=== PATIENT | female | born 1950 | race Caucasian/White ===

== ENCOUNTER 2016-12-22 19:38 | Inpatient (IN) | payer OTHER ==
[2016-12-22] MEDS ORDERED: KETAMINE 100 MG/10 ML SYR IVP ONE (19:56)
--- NOTE | 2016-12-22 20:36 | EDPHY ---
H & P Stated Complaint: [facility] [place] fall, tripped by dogs, right hip pain ext. rotation dislocated fingers Time Seen by Provider: 12/22/16 19:49 HPI/ROS: CHIEF COMPLAINT: Mechanical fall, multiple finger dislocations, right hip pain HISTORY OF PRESENT ILLNESS: The patient presents to the ED after mechanical fall. This resulted in multiple finger distally right finger dislocations and right hip pain and deformity. The patient reportedly tripped while walking her dog. She fell landing on her right hip. She dislocated her 3rd and 4th fingers. The patient has a prior history of a right knee surgery. She did not strike her head or lose consciousness. The patient denies any complaints of headache, neck pain, back pain, chest pain, difficulty breathing, numbness or weakness. The patient has moderate to severe pain with any attempted movement of her right hip. The patient denies anticoagulant use. REVIEW OF SYSTEMS: A comprehensive 10 point review of systems is otherwise negative aside from elements mentioned in the history of present illness. Source: Patient Exam Limitations: No limitations - Personal History Current Tetanus/Diphtheria Vaccine: Yes Current Tetanus Diphtheria and Acellular Pertussis (TDAP): Yes Tetanus Vaccine Date: less than 10 years - Medical/Surgical History Hx Asthma: No Hx Chronic Respiratory Disease: No Hx Diabetes: No Hx Cardiac Disease: No Hx Renal Disease: No Hx Cirrhosis: No Hx Alcoholism: No Hx HIV/AIDS: No Hx Splenectomy or Spleen Trauma: No Other PMH: arthritis, osteoporosis. R hip labrum repair, R total knee rep. - Social History Smoking Status: Never smoked - Physical Exam Exam: General Appearance: Alert, moderate discomfort Eyes: Pupils equal and round no pallor or injection ENT, Mouth: Mucous membranes moist Respiratory: There are no retractions, lungs are clear to auscultation Cardiovascular: Regular rate and rhythm Gastrointestinal: Abdomen is soft and nontender, no masses, bowel sounds normal Neurological: A&O, normal motor function, normal sensory exam, normal cranial nerves Skin: Warm and dry, no rashes Musculoskeletal: Neck is supple nontender Extremities: Dislocations noted of the right 3rd and 4th PIP joints Constitutional: Initial Vital Signs Temperature (C) 36.8 C 12/22/16 19:49 Heart Rate 79 12/22/16 19:49 Respiratory Rate 20 12/22/16 19:49 Blood Pressure 138/87 H 12/22/16 19:49 O2 Sat (%) 95 12/22/16 19:49 O2 Delivery Mode Nasal Cannula O2 (L/minute) 3 Allergies/Adverse Reactions: bee venom protein (honey bee) Allergy (Verified 12/22/16 19:48) Home Medications: Medication Instructions Recorded Celebrex 12/22/16 Medical Decision Making - Diagnostics EKG Interpretation: EKG: Complete interpretation has been separately recorded in the [facility] archive. Summary impression: Sinus rhythm Imaging Results: Imaging Impressions Hip X-Ray 12/22/16 19:56 Impression: 1. Oblique fracture proximal shaft right femur extending into the intertrochanteric area with fracture fragment also the lesser trochanter. Hand X-Ray 12/22/16 19:57 Impression: 1. No acute osseous abnormality seen right hand. Femur X-Ray 12/22/16 20:13 Impression: 1. Oblique fracture proximal shaft right femur extending into the intertrochanteric area with fracture fragment also the lesser trochanter. Procedures: 1. Procedure: Dislocation reduction. Indication: Dislocation reduction of a right 4th DIP dislocation The right 4th finger was reduced in the usual fashion without complications. Post reduction the patient's neurovascular exam is normal. Post reduction x- ray demonstrates reduction of the joint to the anatomic position. The procedure was performed by myself. 2. Procedure: Dislocation reduction. Indication: Dislocation reduction of a right 3rd PIP dislocation The right 3rd finger was reduced in the usual fashion without complications. Post reduction the patient's neurovascular exam is normal. Post reduction x- ray demonstrates reduction of the joint to the anatomic position. The procedure was performed by myself. ED Course/Re-evaluation: The patient had dislocations of her 3rd and 4th fingers of the right hand which were treated by myself with close reduction and splinted with finger splints. The patient was taken for x-ray which demonstrates a proximal femur fracture oblique and spiral in nature with slight displacement deformity. The patient had an IV established. She received 50 mg of ketamine for x-rays after she received 200 mcg of fentanyl. Consultation was made with Dr. Olivo from Orthopedic surgery who reviewed the patient's films. He has requested the patient be admitted to the hospitalist. The orthopedic service will evaluate the patient in the morning. She should be NPO after midnight. Consultation was made with Dr. Antwon Phan from the hospitalist service at 9 :00 p.m.. She will admit the patient this evening. The patient was re-evaluated by myself at 9:15 p.m.. She continues to be neurologically intact. Her pain is currently adequately controlled. Differential Diagnosis: Differential diagnosis considered includes finger fracture, dislocation, hip fracture, pelvic fracture, neurovascular injury, femur fracture - Data Points Laboratory Results: Laboratory Results 12/22/16 19:49 12/22/16 19:49 12/22/16 12/22/16 19:49 19:49 WBC 9.60 10^3/uL H 10^3/uL (3.80-9.50) RBC 4.24 10^6/uL 10^6/uL (4.18-5.33) Hgb 12.9 g/dL g/dL (12.6-16.3) Hct 38.6 % % (38.0-47.0) MCV 91.0 fL fL (81.5-99.8) MCH 30.4 pg pg (27.9-34.1) MCHC 33.4 g/dL g/dL (32.4-36.7) RDW 13.8 % % (11.5-15.2) Plt Count 317 10^3/uL 10^3/uL (150-400) MPV 10.2 fL fL (8.7-11.7) Neut % (Auto) 49.0 % % (39.3-74.2) Lymph % (Auto) 36.9 % % (15.0-45.0) [place] % (Auto) 9.5 % % (4.5-13.0) Eos % (Auto) 3.6 % % (0.6-7.6) Baso % (Auto) 0.7 % % (0.3-1.7) Nucleat RBC Rel Count 0.0 % % (0.0-0.2) Absolute Neuts (auto) 4.70 10^3/uL 10^3/uL (1.70-6.50) Absolute Lymphs (auto) 3.54 10^3/uL H 10^3/uL (1.00-3.00) Absolute Monos (auto) 0.91 10^3/uL H 10^3/uL (0.30-0.80) Absolute Eos (auto) 0.35 10^3/uL 10^3/uL (0.03-0.40) Absolute Basos (auto) 0.07 10^3/uL 10^3/uL (0.02-0.10) Absolute Nucleated RBC 0.00 10^3/uL 10^3/uL (0-0.01) Immature Gran % 0.3 % % (0.0-1.1) Immature Gran # 0.03 10^3/uL 10^3/uL (0.00-0.10) Sodium 141 mEq/L mEq/L (134-144) Potassium 4.0 mEq/L mEq/L (3.5-5.2) Chloride 109 mEq/L mEq/L (97-110) Carbon Dioxide 22 mEq/l mEq/l (22-31) Anion Gap 10 mEq/L mEq/L (8-16) BUN 28 mg/dL H mg/dL (7-23) Creatinine 0.9 mg/dL mg/dL (0.6-1.0) Estimated GFR > 60 Glucose 117 mg/dL H mg/dL (70-100) Calcium 9.5 mg/dL mg/dL (8.5-10.4) Medications Given: Discontinued Medications Hydromorphone HCl (Dilaudid) 0.5 mg IVP EDNOW ONE Stop: 12/22/16 20:41 Last Admin: 12/22/16 20:46 Dose: 0.5 mg Ketamine HCl (Ketamine) 50 mg IVP EDNOW ONE Stop: 12/22/16 19:57 Last Admin: 12/22/16 20:02 Dose: 50 mg Departure - Departure Disposition: [facility] In[facility] Acute Clinical Impression: Fracture of proximal end of right femur Qualifiers: Encounter type: initial encounter Fracture type: closed Qualified Code(s): S72.001A - Fracture of unspecified part of neck of right femur, initial encounter for closed fracture Dislocation of right middle finger Qualifiers: Encounter type: initial encounter Qualified Code(s): S63.252A - Unspecified dislocation of right middle finger, initial encounter Dislocation of right ring finger Qualifiers: Encounter type: initial encounter Qualified Code(s): S63.254A - Unspecified dislocation of right ring finger, initial encounter Condition: Fair
--- NOTE | 2016-12-22 20:39 | CPEKG ---
Heart Rate: 74 RR Interval: 811 P-R Interval: 152 QRSD Interval: 74 QT Interval: 396 QTC Interval: 440 P [place]: 52 QRS [place]: 11 T Wave [place]: 15 EKG Severity - NORMAL ECG - EKG Impression: SINUS RHYTHM Electronically Signed By: Tyrone Ocasio 22-Dec-2016 21:14:15
[2016-12-22] MEDS ORDERED: HYDROmorphONE/DILAUDID 1 MG/ML SYR IVP ONE ×2 (20:40→21:15)
[2016-12-22 21:03] LABS: % IMMATURE GRANULYOCYTES 0.3 % (0.0-1.1); ABSOLUTE IMMATURE GRANULOCYTES 0.03 10^3/uL (0.00-0.10); ADD DIFF? NO; ADD MORPH? NO; ADD SCAN? NO; ATYPICAL LYMPHOCYTE FLAG 0 (0-99); FRAGMENT RBC FLAG 0 (0-99); HEMATOCRIT 38.6 % (38.0-47.0); HEMOGLOBIN 12.9 g/dL (12.6-16.3); LEFT SHIFT FLG 0 (0-99); LIPEMIA HEMOLYSIS FLAG 80 (0-99); MEAN CELL HEMOGLOBIN 30.4 pg (27.9-34.1); MEAN CELL HEMOGLOBIN CONCENTR. 33.4 g/dL (32.4-36.7); MEAN PLATELET VOLUME 10.2 fL (8.7-11.7); PLATELET CLUMPS FLAG 10 (0-99); PLATELET COUNT 317 10^3/uL (150-400); RED BLOOD CELL COUNT 4.24 10^6/uL (4.18-5.33); RED CELL DISTRIBUTION WIDTH 13.8 % (11.5-15.2)
[2016-12-22 21:09] LABS: ANION GAP 10 mEq/L (8-16); CALCIUM 9.5 mg/dL (8.5-10.4); CARBON DIOXIDE 22 mEq/l (22-31); CHLORIDE 109 mEq/L (97-110); CREATININE 0.9 mg/dL (0.6-1.0); GLOMERULAR FILTRATION RATE > 60; GLUCOSE 117 mg/dL (70-100); SODIUM 141 mEq/L (134-144)
[2016-12-22] MEDS ORDERED: NS 1,000 ML IV ONE (21:10)
[2016-12-22] MEDS ORDERED: MAGNESIUM HYDROXIDE 30 ML UDCUP PO PRN (21:12)
[2016-12-22] MEDS ORDERED: ONDANSETRON 4 MG/2 ML VIAL IVP PRN (21:12)
[2016-12-22] MEDS ORDERED: LACTULOSE 20 GM/30 ML UDCUP PO PRN (21:12)
[2016-12-22] MEDS ORDERED: PROMETHAZINE HCL 25 MG TAB PO PRN (21:12)
[2016-12-22] MEDS ORDERED: LORazepam 0.5 MG TAB PO PRN (21:12)
[2016-12-22] MEDS ORDERED: BISACODYL 10 MG SUPP PR PRN (21:12)
[2016-12-22] MEDS ORDERED: ONDANSETRON DISINTEGRATING 4 MG TAB PO PRN (21:12)
[2016-12-22] MEDS ORDERED: NS 1,000 ML IV SCH (21:15)
--- NOTE | 2016-12-22 21:22 | PDGENHP ---
History and Physical - Chief Complaint hip pain - History of Present Illness 66 yo F with PMH that includes osteoarthritis and right labral tear presenting s /p mechanical fall at home with severe right sided hip pain. Patient was opening the door for the gilda man, and her 2 puppies escaped--she ran outside after them, but when she grabbed one of the dogs collars to restrain him, she suffered finger dislocations on her right hand and fell to the ground onto her right hip. She did not hit her head. She had no LOC. She had immediate severe pain and was unable to move. She states this was more severe pain than she has ever had in her life. She was given ketamine and dilaudid in ER and notes that so long as she does not move, her pain is currently controlled, but with any movement at all the pain is again severe. History Information - Allergies/Home Medication List Allergies/Adverse Reactions: bee venom protein (honey bee) Allergy (Verified 12/22/16 19:48) Home Medications: Calcium Carbonate [Oyster Shell Calcium 500 mg (*)] 500 mg PO DAILY 12/22/16 [ Last Taken 12/22/16] Celebrex 12/22/16 [Last Taken Unknown] Docusate Sodium [Colace 100 MG (*)] 100 mg PO DAILY 12/22/16 [Last Taken ] I have personally reviewed and updated: family history, medical history, social history, surgical history - Past Medical History migraines Additional medical history: right labral tear with right total hip scheduled in February - Surgical History Additional surgical history: bladder sling and mesh surgery. TKA. multiple arthroscopies right knee - Family History Positive for: non-pertinent - Social History Smoking Status: Never smoked Alcohol Use: Rarely Drug Use: None Additional social history: , 3 children, patient and her are psychiatrists Review of Systems ROS: 10pt was reviewed & negative except for what was stated in HPI & below Physical Exam Temp Pulse Resp BP Pulse Ox 36.8 C 76 15 108/62 96 12/22/16 19:49 12/22/16 20:38 12/22/16 20:38 12/22/16 20:38 12/22/16 20:38 Constitutional: appears nourished, uncomfortable Eyes: PERRL Ears, Nose, Mouth, Throat: hearing normal, dry mucous membranes Cardiovascular: regular rate and rhythym, no murmur, rub, or gallop, No edema Respiratory: no respiratory distress, no rales or rhonchi Gastrointestinal: normoactive bowel sounds, soft, non-tender abdomen Skin: warm, normal color Musculoskeletal: full muscle strength, joint tenderness (right hip), No asymmetric calves Neurologic: AAOx3 Psychiatric: interacting appropriately, not anxious, not encephalopathic Lab Data & Imaging Review 12/22/16 19:49 12/22/16 19:49 WBC 9.60 10^3/uL (3.80-9.50) H 12/22/16 19:49 RBC 4.24 10^6/uL (4.18-5.33) 12/22/16 19:49 Hgb 12.9 g/dL (12.6-16.3) 12/22/16 19:49 Hct 38.6 % (38.0-47.0) 12/22/16 19:49 MCV 91.0 fL (81.5-99.8) 12/22/16 19:49 MCH 30.4 pg (27.9-34.1) 12/22/16 19:49 MCHC 33.4 g/dL (32.4-36.7) 12/22/16 19:49 RDW 13.8 % (11.5-15.2) 12/22/16 19:49 Plt Count 317 10^3/uL (150-400) 12/22/16 19:49 MPV 10.2 fL (8.7-11.7) 12/22/16 19:49 Neut % (Auto) 49.0 % (39.3-74.2) 12/22/16 19:49 Lymph % (Auto) 36.9 % (15.0-45.0) 12/22/16 19:49 [place] % (Auto) 9.5 % (4.5-13.0) 12/22/16 19:49 Eos % (Auto) 3.6 % (0.6-7.6) 12/22/16 19:49 Baso % (Auto) 0.7 % (0.3-1.7) 12/22/16 19:49 Nucleat RBC Rel Count 0.0 % (0.0-0.2) 12/22/16 19:49 Absolute Neuts (auto) 4.70 10^3/uL (1.70-6.50) 12/22/16 19:49 Absolute Lymphs (auto) 3.54 10^3/uL (1.00-3.00) H 12/22/16 19:49 Absolute Monos (auto) 0.91 10^3/uL (0.30-0.80) H 12/22/16 19:49 Absolute Eos (auto) 0.35 10^3/uL (0.03-0.40) 12/22/16 19:49 Absolute Basos (auto) 0.07 10^3/uL (0.02-0.10) 12/22/16 19:49 Absolute Nucleated RBC 0.00 10^3/uL (0-0.01) 12/22/16 19:49 Immature Gran % 0.3 % (0.0-1.1) 12/22/16 19:49 Immature Gran # 0.03 10^3/uL (0.00-0.10) 12/22/16 19:49 Sodium 141 mEq/L (134-144) 12/22/16 19:49 Potassium 4.0 mEq/L (3.5-5.2) 12/22/16 19:49 Chloride 109 mEq/L (97-110) 12/22/16 19:49 Carbon Dioxide 22 mEq/l (22-31) 12/22/16 19:49 Anion Gap 10 mEq/L (8-16) 12/22/16 19:49 BUN 28 mg/dL (7-23) H 12/22/16 19:49 Creatinine 0.9 mg/dL (0.6-1.0) 12/22/16 19:49 Estimated GFR > 60 12/22/16 19:49 Glucose 117 mg/dL (70-100) H 12/22/16 19:49 Calcium 9.5 mg/dL (8.5-10.4) 12/22/16 19:49 Visualized and Interpreted imaging results: Yes Interpretation: femur/hip xray: oblique, displaced fx of right proximal femur shaft. hand xray: no bony abnormalities Visualized and Interpreted EKG results: Yes EKG Interpretation: Positive for: normal sinsus rhythm, NS ST wave abnormalities Assessment & Plan Assessment: Dislocation of right middle finger (Acute) Dislocation of right ring finger (Acute) Fracture of proximal end of right femur (Acute) 66 yo F with hx of prior right TKA and right labral tear with planned total hip presenting s/p mechanical fall with right subtrochanteric femur fx # right displaced subtrochanteric femur fx: will need surgical intervention, ortho consulted with plans for surgery in am. Patient is a low risk surgical candidate and no reason to delay surgery in this patient. For tonight, will work on pain control with IV opiates as needed, bed rest. # right 3rd/4th finger dislocation: s/p relocation in ER, f/u xrays show fingers now well aligned, fingers are in splints, pain control as above # right labral tear: there had been a plan for total hip in February, patient wondering if this can be addressed at the same time as intervention for her femur fracture, explained to patient that the orthopedist will need to decide this, but that it seems unlikely. Surgery for above for sure, PT/OT to follow and decisions regarding her labral tear deferred to ortho # hyperglycemia: without hx of DM, likely stress response, will monitor # elevated BUN: patient appears dry on exam, suspect mild pre renal azotemia, IVF overnight and recheck in am # dispo: IP status, will need > 48 hours stay for eval/mgmt of above Patient new to my care. Old records reviewed and summarized as above. Care plan reviewed with ER doctor. Further hx obtained from patients present at bedside.
[2016-12-22] MEDS: oxyCODONE IR 5 MG TAB PO PRN (23:29)
[2016-12-22] MEDS: HYDROmorphONE/DILAUDID 1 MG/ML SYR IVP PRN (23:30)
[2016-12-23] MEDS: CYCLOBENZAPRINE 10 MG TAB PO PRN ×2 (00:40→20:01)
[2016-12-23] MEDS: HYDROmorphONE/DILAUDID 1 MG/ML SYR IVP PRN ×4 (03:06→10:10)
[2016-12-23] MEDS: oxyCODONE IR 5 MG TAB PO PRN ×4 (03:07→21:30)
[2016-12-23 04:26] LABS: % IMMATURE GRANULYOCYTES 0.5 % (0.0-1.1); ABSOLUTE IMMATURE GRANULOCYTES 0.05 10^3/uL (0.00-0.10); ADD DIFF? NO; ADD MORPH? NO; ADD SCAN? NO; ATYPICAL LYMPHOCYTE FLAG 10 (0-99); FRAGMENT RBC FLAG 0 (0-99); HEMATOCRIT 33.7 % (38.0-47.0); HEMOGLOBIN 10.6 g/dL (12.6-16.3); LEFT SHIFT FLG 10 (0-99); LIPEMIA HEMOLYSIS FLAG 80 (0-99); MEAN CELL HEMOGLOBIN 30.1 pg (27.9-34.1); MEAN CELL HEMOGLOBIN CONCENTR. 31.5 g/dL (32.4-36.7); MEAN CELL VOLUME 95.7 fL (81.5-99.8); MEAN PLATELET VOLUME 9.6 fL (8.7-11.7); PLATELET CLUMPS FLAG 10 (0-99); PLATELET COUNT 238 10^3/uL (150-400); RED BLOOD CELL COUNT 3.52 10^6/uL (4.18-5.33); RED CELL DISTRIBUTION WIDTH 13.8 % (11.5-15.2)
[2016-12-23] MEDS ORDERED: NS BOLUS 1000 ML (Wide open) IV ONE (04:30)
[2016-12-23] MEDS: DOCUSATE SODIUM 100 MG CAP PO SCH (08:08)
[2016-12-23] MEDS: SENNOSIDES/DOCUSATE SODIUM TAB PO SCH ×2 (08:08→20:00)
[2016-12-23] MEDS: CALCIUM CARBONATE 500 MG TAB PO SCH (08:08)
--- NOTE | 2016-12-23 08:22 | HOSPPROG ---
Hospitalist Progress Note Assessment/Plan: 66 yo F with hx of prior right TKA and right labral tear with planned total hip presenting s/p mechanical fall with right subtrochanteric femur fx. Today is my first encounter with the patient/ chart reviewed. # right displaced subtrochanteric femur fx pain is ongoing, but managed with oral medications to have surgery today with Dr Olivo *right labral tear patient was planing on a total hip in February/ was hopeful this could be addressed in today's surgery *right 3rd/4th dislocation s/p relocation in ER splints on fingers *Hyperglycemia likely stressed induced *anemia will follow *Hypotension cont fluids *Plan: surgery this morning w Dr Olivo/ repeat labs in a.m. Subjective: Stacie is c/o pain w any movement. Objective: Vital Signs Temp Pulse Resp BP Pulse Ox 36.9 C 76 15 101/59 L 95 12/23/16 07:06 12/23/16 07:06 12/23/16 07:06 12/23/16 07:06 12/23/16 07:06 Laboratory Results 12/23/16 04:15 12/22/16 12/23/16 12/24/16 05:59 05:59 05:59 Intake Total 3690 Balance 3690 - Physical Exam Constitutional: uncomfortable, No not in pain Eyes: anicteric sclera Ears, Nose, Mouth, Throat: hearing normal Cardiovascular: regular rate and rhythym Respiratory: no respiratory distress Gastrointestinal: normoactive bowel sounds Skin: warm Musculoskeletal: other (right leg rotated out/ shortened) Neurologic: AAOx3 Psychiatric: interacting appropriately, not encephalopathic ICD10 Worksheet Patient Problems: Problems Problem Status Onset Dislocation of right middle finger Acute Dislocation of right ring finger Acute Fracture of proximal end of right femur Acute
[2016-12-23] MEDS ORDERED: ROPIVACAINE HCL 20 MG/10 ML INJ EP ONE (12:35)
[2016-12-23] MEDS ORDERED: PROPOFOL 200 MG/20 ML VIAL ONE ×3 (12:49→15:21)
[2016-12-23] MEDS ORDERED: MIDAZOLAM 2 MG/2 ML VIAL ONE (12:52)
[2016-12-23] MEDS ORDERED: ceFAZolin 2 GM/DEXTROSE 100 ML IV ONE (13:00)
[2016-12-23] MEDS ORDERED: epHEDrine SULFATE 10 MG/ML SYR ONE (14:39)
[2016-12-23] MEDS ORDERED: ONDANSETRON 4 MG/2 ML VIAL ONE (14:42)
[2016-12-23] MEDS ORDERED: ALBUMIN 5% 250 ML BOTTLE IV ONE (14:45)
[2016-12-23] MEDS ORDERED: ROCURONIUM 50 MG/5 ML VIAL ONE (14:49)
[2016-12-23] MEDS ORDERED: ceFAZolin 1 GM VIAL ONE ×2 (15:15)
[2016-12-23] MEDS ORDERED: NEOSTIGMINE METHYLSULFATE 5 MG/5 ML SYR ONE (15:24)
[2016-12-23] MEDS ORDERED: GLYCOPYRROLATE 0.2 MG/1 ML VIAL ONE (15:24)
[2016-12-23] MEDS ORDERED: BUPIVACAINE 0.5% 30 ML SDV ONE (15:24)
[2016-12-23] MEDS ORDERED: MEPERIDINE 25 MG/ML SYR ONE (15:54)
[2016-12-23] MEDS ORDERED: fentaNYL 100 MCG/2 ML INJ ONE (15:54)
[2016-12-23] MEDS ORDERED: HYDROCODONE/APAP 5/325 TAB PO PRN (16:14)
--- NOTE | 2016-12-23 16:43 | GHP ---
[f rep st] PREOP HISTORY AND PHYSICAL DATE OF ADMISSION: 12/22/2016 Orthopedic H and P. CHIEF COMPLAINT: Right hip pain. DIAGNOSIS: Comminuted, unstable right subtrochanteric fracture. HISTORY OF PRESENT ILLNESS: 66-year-old female with history of osteoarthritis. Right total knee by Dr. Geoffrey Willett. Has 2 puppies, [place] [employer], siblings, and when the glida man came to t he door, the 2 puppies escaped, and she ran after them and tripped onto her right hip. She suffered finger dislocations to her right hand that were reduced in the emergency room. She was evaluated w ith x-rays, which showed an unstable subtrochanteric fracture of her right hip. Please see details of ER and Admitting H and P. PERTINENT ORTHOPEDIC EXAMINATION: GENERAL: Reveals a well-appearing female. RIGHT UPPER EXTREMITY : Splinted long and ring fingers of her right hand. LEFT UPPER EXTREMITY: Atraumatic. ABDOMEN: Soft and obese. PELVIS: Stable. LEFT LOWER EXTREMITY: With no pain with hip range of motion, kne e range of motion, ankle range of motion. RIGHT HIP: Shortened, externally rotated, and was very p ainful. SKIN: Looked healthy. X-RAYS: Reviewed of the hip, which showed a subtrochanteric fracture of the right hip with arthriti c changes of the right hip. IMPRESSION AND RECOMMENDATION: Well-functioning right total knee replacement per her report. Ipsil ateral right subtrochanteric femur fracture. Discussed case with Dr. Willett. Okay for me to take to surgery after medical clearance. Risks, benefits, expectations and alternatives were discussed. Proceed with IM nail, right femur. Hand consultation in followup for the right fingers. /[id number]/MODL
[2016-12-23] MEDS: D5W 1/2 NS W/ 20 KCl/L 1,000 ML IV SCH (17:09)
[2016-12-23] MEDS: OXYCODONE/APAP 5/325 TAB PO PRN (20:01)
--- NOTE | 2016-12-23 23:29 | GOP ---
[f rep st] OPERATIVE REPORT DATE OF OPERATION: SURGEON: Drea Olivo MD PREOPERATIVE DIAGNOSIS: Right subtrochanteric femur fracture. POSTOPERATIVE DIAGNOSIS: Right subtrochanteric femur fracture. PROCEDURE PERFORMED: Intramedullary nailing with open reduction technique of the right subtrochante ciro femur fracture. FINDINGS: INDICATIONS: A 66-year-old female, and a mechanical fall. Clinical radiographic shows a subtroch f emur fracture. The patient elects for operative intervention. She has reportedly well-functioning total knee on the ipsilateral knee. DESCRIPTION OF PROCEDURE: The patient was identified in the preoperative holding area. Consent lat erality and preoperative antibiotics were confirmed and delivered. All questions were answered. Th e admitting hospitalist's note was reviewed. The patient brought into the operating room. General anesthesia, on the gurney. Transferred over t o the traction table. Well-padded bolster was used. Well leg was placed in 45 degrees of abduction , 45 degrees of knee flexion, well padded. The operative leg was placed in neutral adduction, knee cap was pointing toward the shena, slight traction. On the pre-scrubbed fluoroscopic views, we had ni ce alignment; but on the lateral view, we had full flexion of the anterior fracture fragment and a p osterior sag. We did slight traction, and with posterior elevation, we were able to get the fractur e fragments in reasonable alignment. The right hip was prepped and draped in usual sterile fashion. Surgical time-out was performed. Io ban draping, and to consider also distal interlocking screws. A 10 cm incision was made in line, a slight angle to the greater trochanter. Blunt dissection down to the greater tip. A guidewire was passed off the tip of the greater trochanter. Opening reamer 13 mm was used. A ball-tipped guidewi re was placed, and we tried closed reduction techniques, but is very difficult. So we made a latera l opening incision about 8 cm, sharp dissection through the ITB band. Blunt dissection of the vastu s posteriorly, and with finger palpation, we guided the wire into the distal fragment. There were m ultiple comminuted long pieces that was very difficult, but we were able to confirm the wire placeme nt down into the canal in the femur. We did an 8 mm end-cutting reamer, and then successively reame d to about 13.5; and we placed in an anticipated about a 2 to 2.5 mm discrepancy of 11 mm nail for i dentifying the posterior offset with the fracture. We placed the nail easily. We placed the cephal omedullary device, a 95 mm was the size, and then placed 2 distal interlocking screws from lateral t o medial. Prior to the distal interlocks, all traction was taken down. The wounds were copiously w ashed out with 3 L of warm LR. Zero PDS for ITP band closure, 2-0 PDS for deep subcutaneous closure , Monocryl for superficial subcutaneous closure, and adam for skin. 30 cc of 0.5% Marcaine were used throughout the incision. A sterile dressing was applied with Xeroform, 4 x 4's, and Tegaderm. At the end of the case, there appeared to be about a 5 mm leg length discrepancy with the right leg being a little bit longer. IMPLANTS USED: Synthes 315 mm nail by 11 mm. Two distal interlocking screws. /[id number]/MODL
[2016-12-24] MEDS: CYCLOBENZAPRINE 10 MG TAB PO PRN (04:22)
[2016-12-24] MEDS: oxyCODONE IR 5 MG TAB PO PRN ×5 (04:23→20:40)
[2016-12-24] MEDS: D5W 1/2 NS W/ 20 KCl/L 1,000 ML IV SCH (04:25)
[2016-12-24 05:24] LABS: % IMMATURE GRANULYOCYTES 0.4 % (0.0-1.1); ABSOLUTE IMMATURE GRANULOCYTES 0.04 10^3/uL (0.00-0.10); ADD DIFF? NO; ADD MORPH? NO; ADD SCAN? NO; ATYPICAL LYMPHOCYTE FLAG 0 (0-99); FRAGMENT RBC FLAG 0 (0-99); HEMATOCRIT 23.3 % (38.0-47.0); HEMOGLOBIN 7.5 g/dL (12.6-16.3); LEFT SHIFT FLG 90 (0-99); LIPEMIA HEMOLYSIS FLAG 80 (0-99); MEAN CELL HEMOGLOBIN 30.9 pg (27.9-34.1); MEAN CELL HEMOGLOBIN CONCENTR. 32.2 g/dL (32.4-36.7); MEAN CELL VOLUME 95.9 fL (81.5-99.8); MEAN PLATELET VOLUME 9.5 fL (8.7-11.7); PLATELET CLUMPS FLAG 0 (0-99); PLATELET COUNT 175 10^3/uL (150-400); RED BLOOD CELL COUNT 2.43 10^6/uL (4.18-5.33); RED CELL DISTRIBUTION WIDTH 14.1 % (11.5-15.2)
[2016-12-24 05:51] LABS: ANION GAP 3 mEq/L (8-16); CALCIUM 7.6 mg/dL (8.5-10.4); CARBON DIOXIDE 26 mEq/l (22-31); CHLORIDE 108 mEq/L (97-110); CREATININE 0.6 mg/dL (0.6-1.0); GLOMERULAR FILTRATION RATE > 60; GLUCOSE 131 mg/dL (70-100); POTASSIUM 4.4 mEq/L (3.5-5.2); SODIUM 137 mEq/L (134-144)
[2016-12-24] MEDS: HYDROmorphONE/DILAUDID 1 MG/ML SYR IVP PRN (07:12)
[2016-12-24] MEDS: SENNOSIDES/DOCUSATE SODIUM TAB PO SCH ×2 (08:20→20:02)
[2016-12-24] MEDS: DOCUSATE SODIUM 100 MG CAP PO SCH (08:22)
[2016-12-24] MEDS: ENOXAPARIN 40 MG/0.4 ML SYR SC SCH (08:22)
[2016-12-24] MEDS: CALCIUM CARBONATE 500 MG TAB PO SCH (08:22)
[2016-12-24] MEDS: POLYETHYLENE GLYCOL 3350 17 GM PKT PO PRN (08:31)
[2016-12-24] MEDS ORDERED: NS 250 ML IV ONE (12:09)
--- NOTE | 2016-12-24 12:09 | HOSPPROG ---
Hospitalist Progress Note Assessment/Plan: 66 yo F with hx of prior right TKA and right labral tear with planned total hip presenting s/p mechanical fall with right subtrochanteric femur fx. # right displaced subtrochanteric femur fx POD #1 nailing w ORIF *right labral tear further f/u later after she heals from this surgery *right 3rd/4th dislocation s/p relocation in ER splints on fingers *Hyperglycemia likely stressed induced *anemia/blood loss patient is tachycardic and hypotensive will give a unit of PRBC's/risks vs benefits discussed will follow *hypoxemia will order portable chest xray *Hypotension cont fluids *Plan: one unit of PRBC x 1 now, repeat labs in a.m., Subjective: Stacie is feeling fine but extremely tired. Objective: Vital Signs Temp Pulse Resp BP Pulse Ox 36.7 C 105 H 18 87/54 L 99 12/24/16 12:00 12/24/16 12:00 12/24/16 12:00 12/24/16 12:00 12/24/16 12:00 Laboratory Results 12/24/16 05:06 12/24/16 05:06 12/23/16 12/24/16 12/25/16 05:59 05:59 05:59 Intake Total 3690 3250 200 Output Total 1100 Balance 3690 2150 200 - Physical Exam Constitutional: appears nourished Eyes: PERRL Ears, Nose, Mouth, Throat: hearing normal Cardiovascular: regular rate and rhythym, tachycardia Respiratory: no respiratory distress, reduced air movement (bibasilar) Gastrointestinal: normoactive bowel sounds Skin: other (right hip with swelling,right upper thigh area with swelling) Musculoskeletal: muscular tenderness Neurologic: AAOx3 Psychiatric: interacting appropriately ICD10 Worksheet Patient Problems: Problems Problem Status Onset Dislocation of right middle finger Acute Dislocation of right ring finger Acute Fracture of proximal end of right femur Acute
[2016-12-24] MEDS ORDERED: ACETAMINOPHEN 325 MG TAB PO ONE (12:10)
--- NOTE | 2016-12-24 13:34 | SOAPPROG ---
SOAP Progress Note Assessment/Plan: Assessment: shaylee 66 yo female, pod #1 s/p right femoral nailing w/ ORIF of right femur fracture -care per primary team -pain control per primary team -proph: per primary team -consider giving unit of PRBC's as per medicines note given low H/H -RLE: partial weight bearing with walker. -dispo per primary team with stable labs/vital signs -follow up with orthopedics 7-10 days s/p surgery w/ dr. chavez or staff at [facility] [place] -ortho will continue to follow till discharge Plan: 12/24/16 13:38 12/24/16 13:38 Subjective: patient denies issues overnight, reports she slept okay, pain was an issue at times, but after receiving a dose of flexeril at 4am, she reports she slept much better, her reports that she has been lethargic since he arrived this morning. patient also reports her blood pressure has been low and her heart rate has been elevated denies cp/sob, denies n/v/d/c, reports a little lightheadedness Objective: pale and lethargic in appearence, nodding off at times during conversation RLE dressings c/d/i, nvid w/ brisk cap refill, full ankle/digital rom, pt/dp 2+ Vital Signs Temp Pulse Resp BP Pulse Ox 37.1 C 99 16 92/50 L 99 12/24/16 12:39 12/24/16 12:39 12/24/16 12:39 12/24/16 12:39 12/24/16 12:39 Laboratory Results 12/24/16 05:06 12/24/16 05:06 12/23/16 12/24/16 12/25/16 05:59 05:59 05:59 Intake Total 3690 3250 200 Output Total 1100 Balance 3690 2150 200 ICD10 Worksheet Patient Problems: Problems Problem Status Onset Dislocation of right middle finger Acute Dislocation of right ring finger Acute Fracture of proximal end of right femur Acute
[2016-12-24 17:51] LABS: HEMATOCRIT 25.9 % (38.0-47.0); HEMOGLOBIN 8.5 g/dL (12.6-16.3)
[2016-12-25] MEDS: oxyCODONE IR 5 MG TAB PO PRN ×6 (04:47→20:22)
[2016-12-25 05:06] LABS: % IMMATURE GRANULYOCYTES 0.6 % (0.0-1.1); ABSOLUTE IMMATURE GRANULOCYTES 0.05 10^3/uL (0.00-0.10); ADD DIFF? NO; ADD MORPH? NO; ADD SCAN? NO; ATYPICAL LYMPHOCYTE FLAG 0 (0-99); FRAGMENT RBC FLAG 0 (0-99); HEMATOCRIT 24.7 % (38.0-47.0); LEFT SHIFT FLG 30 (0-99); LIPEMIA HEMOLYSIS FLAG 80 (0-99); MEAN CELL HEMOGLOBIN 30.5 pg (27.9-34.1); MEAN CELL HEMOGLOBIN CONCENTR. 32.4 g/dL (32.4-36.7); MEAN CELL VOLUME 94.3 fL (81.5-99.8); MEAN PLATELET VOLUME 9.6 fL (8.7-11.7); PLATELET CLUMPS FLAG 0 (0-99); PLATELET COUNT 163 10^3/uL (150-400); RED BLOOD CELL COUNT 2.62 10^6/uL (4.18-5.33); RED CELL DISTRIBUTION WIDTH 14.5 % (11.5-15.2)
[2016-12-25 05:27] LABS: ANION GAP 4 mEq/L (8-16); CALCIUM 7.8 mg/dL (8.5-10.4); CARBON DIOXIDE 28 mEq/l (22-31); CHLORIDE 104 mEq/L (97-110); CREATININE 0.7 mg/dL (0.6-1.0); GLOMERULAR FILTRATION RATE > 60; GLUCOSE 118 mg/dL (70-100); POTASSIUM 4.2 mEq/L (3.5-5.2); SODIUM 136 mEq/L (134-144)
[2016-12-25] MEDS: SENNOSIDES/DOCUSATE SODIUM TAB PO SCH ×2 (08:10→20:17)
[2016-12-25] MEDS: CALCIUM CARBONATE 500 MG TAB PO SCH (08:11)
[2016-12-25] MEDS: ENOXAPARIN 40 MG/0.4 ML SYR SC SCH (08:11)
[2016-12-25] MEDS: DOCUSATE SODIUM 100 MG CAP PO SCH (08:12)
[2016-12-25] MEDS: POLYETHYLENE GLYCOL 3350 17 GM PKT PO PRN (08:12)
[2016-12-25] MEDS ORDERED: NS 500 ML IV ONE (09:46)
[2016-12-25] MEDS: ACETAMINOPHEN 325 MG TAB PO PRN (10:58)
[2016-12-25] MEDS ORDERED: NS 1,000 ML IV SCH (12:45)
[2016-12-25 12:52] LABS: HEMATOCRIT 23.3 % (38.0-47.0); HEMOGLOBIN 7.6 g/dL (12.6-16.3)
--- NOTE | 2016-12-25 14:28 | HOSPPROG ---
Hospitalist Progress Note Assessment/Plan: 66 yo F with hx of prior right TKA and right labral tear with planned total hip presenting s/p mechanical fall with right subtrochanteric femur fx. # right displaced subtrochanteric femur fx POD #2 nailing w ORIF *right labral tear further f/u later after she heals from this surgery *right 3rd/4th dislocation s/p relocation in ER splints on fingers *Hyperglycemia likely stressed induced *anemia/blood loss patient is tachycardic and hypotensive was given a unit of PRBC's yesterday hgb/hct decreased today/ will give another unit right femur area very swollen/ RN updated surgical team Celebrex place on hold *hypoxemia will order portable chest xray *Hypotension Given 2 fluid bolus/will transfuse a unit of blood *Plan: one unit of PRBC x 1 now, repeat labs in a.m., Subjective: saurabh is feeling better today/ was able to get oob without difficulty. Objective: Vital Signs Temp Pulse Resp BP Pulse Ox 36.8 C 110 H 14 90/46 L 94 12/25/16 09:11 12/25/16 09:11 12/25/16 09:11 12/25/16 09:11 12/25/16 09:11 Laboratory Results 12/25/16 12:45 12/25/16 04:50 12/24/16 12/25/16 12/26/16 05:59 05:59 05:59 Intake Total 3250 1000 200 Output Total 1100 1200 Balance 2150 -200 200 - Physical Exam Constitutional: uncomfortable Eyes: PERRL Ears, Nose, Mouth, Throat: hearing normal Cardiovascular: regular rate and rhythym, tachycardia Respiratory: no respiratory distress, reduced air movement Gastrointestinal: normoactive bowel sounds Skin: warm, other (right hip/upper thigh with swelling), No normal color (pale) Neurologic: AAOx3 Psychiatric: interacting appropriately, not anxious ICD10 Worksheet Patient Problems: Problems Problem Status Onset Dislocation of right middle finger Acute Dislocation of right ring finger Acute Fracture of proximal end of right femur Acute
[2016-12-25] MEDS ORDERED: ACETAMINOPHEN 325 MG TAB PO ONE (14:29)
--- NOTE | 2016-12-25 16:17 | SOAPPROG ---
SOAP Progress Note Assessment/Plan: Assessment: shaylee 66 yo female, pod #2 s/p right femoral nailing w/ ORIF of right femur fracture, s/p receiving 1 unit PRBC's -care per primary team -pain control per primary team -proph: per primary team -consider giving A 2ND UNIT of prbc's given H/H that had initially increased but then subsequently decreased today. -discussed with nursing staff that given patients fracture type and surgical blood loss, it is not uncommon to have h/h such as this, and that it is very common to give 2 units of PRBC's for this type of injury, -would also recommend qDaily or q12 cbc's over q8h Cbc's -RLE: partial weight bearing with walker. -dispo per primary team with stable labs/vital signs -follow up with orthopedics 10-14 days s/[place] w/ dr[place]avez [place] [facility] [place]o will continue to follow till discharge Plan: 12/24/16 13:38 12/24/16 13:38 12/25/16 16:17 Subjective: krishna reports she had a better night, denies any issues, reports her pain is much better controlled this time around, denies numbness/tingling, denies n/v/d/ c, denies cp/sob. patient reports she received 1 unit of PRBC's yesterday evening, reports her hypotension and pulse have been slightly better from what she has seen, still lower BP and elevated HR then what she is normally used too. reports she successfeully got out of bed to chair with assistance from staff, but this was difficult due to pain Objective: significantly less lethargic in appearence and significantly less pale in comparison to prior day RLE: dressings c/d/i no visible manuela blood, right thigh soft and compressible, no hip or knee rom assessed as patient was seated in chair, but full ankle/ digital rom, nvid w/ brisk cap refill, pt/dp 2+ Vital Signs Temp Pulse Resp BP Pulse Ox 36.8 C 129 H 14 77/58 L 97 12/25/16 09:11 12/25/16 10:00 12/25/16 09:11 12/25/16 10:00 12/25/16 10:00 Laboratory Results 12/25/16 12:45 12/25/16 04:50 12/24/16 12/25/16 12/26/16 05:59 05:59 05:59 Intake Total 3250 1000 200 Output Total 1100 1200 Balance 2150 -200 200 - Time Spent With Patient Time Spent With Patient: 30 ICD10 Worksheet Patient Problems: Problems Problem Status Onset Dislocation of right middle finger Acute Dislocation of right ring finger Acute Fracture of proximal end of right femur Acute
--- NOTE | 2016-12-25 18:32 | SOAPPROG ---
SOAP Progress Note Assessment/Plan: Assessment: Plan: 12/25/16 18:31 POD 2 blood transfusions for low hct Most blood volume lost is in thigh no evidence of compartment syndrome PT/OT Protected weightbearing RLE. Mobilization Subjective: 6 pm rounds Daughter at bedside Objective: Vital Signs Temp Pulse Resp BP Pulse Ox 36.8 C 103 H 14 89/59 L 92 12/25/16 17:09 12/25/16 17:09 12/25/16 17:09 12/25/16 17:09 12/25/16 17:09 Laboratory Results 12/25/16 12:45 12/25/16 04:50 12/24/16 12/25/16 12/26/16 05:59 05:59 05:59 Intake Total 3250 1000 1950 Output Total 1100 1200 300 Balance 2150 -200 1650 thigh soft and swollen showed her heel slides. dressings cdi active TA and GS She can do AAROM of her hip and knee ICD10 Worksheet Patient Problems: Problems Problem Status Onset Dislocation of right middle finger Acute Dislocation of right ring finger Acute Fracture of proximal end of right femur Acute
[2016-12-25] MEDS: CYCLOBENZAPRINE 10 MG TAB PO PRN (20:18)
[2016-12-25 21:55] LABS: HEMATOCRIT 24.4 % (38.0-47.0); HEMOGLOBIN 8.3 g/dL (12.6-16.3)
[2016-12-26] MEDS: oxyCODONE IR 5 MG TAB PO PRN ×3 (04:28→19:09)
[2016-12-26 05:32] LABS: % IMMATURE GRANULYOCYTES 0.7 % (0.0-1.1); ABSOLUTE IMMATURE GRANULOCYTES 0.07 10^3/uL (0.00-0.10); ADD DIFF? NO; ADD MORPH? NO; ADD SCAN? NO; ATYPICAL LYMPHOCYTE FLAG 0 (0-99); FRAGMENT RBC FLAG 0 (0-99); HEMATOCRIT 24.9 % (38.0-47.0); HEMOGLOBIN 8.3 g/dL (12.6-16.3); LEFT SHIFT FLG 30 (0-99); LIPEMIA HEMOLYSIS FLAG 80 (0-99); MEAN CELL HEMOGLOBIN 30.1 pg (27.9-34.1); MEAN CELL HEMOGLOBIN CONCENTR. 33.3 g/dL (32.4-36.7); MEAN CELL VOLUME 90.2 fL (81.5-99.8); MEAN PLATELET VOLUME 9.7 fL (8.7-11.7); PLATELET CLUMPS FLAG 0 (0-99); PLATELET COUNT 171 10^3/uL (150-400); RED BLOOD CELL COUNT 2.76 10^6/uL (4.18-5.33); RED CELL DISTRIBUTION WIDTH 14.9 % (11.5-15.2)
[2016-12-26 05:52] LABS: ANION GAP 2 mEq/L (8-16); CALCIUM 7.4 mg/dL (8.5-10.4); CARBON DIOXIDE 30 mEq/l (22-31); CHLORIDE 104 mEq/L (97-110); CREATININE 0.5 mg/dL (0.6-1.0); GLOMERULAR FILTRATION RATE > 60; GLUCOSE 100 mg/dL (70-100); POTASSIUM 4.1 mEq/L (3.5-5.2); SODIUM 136 mEq/L (134-144)
[2016-12-26] MEDS: ENOXAPARIN 40 MG/0.4 ML SYR SC SCH (08:11)
[2016-12-26] MEDS: CALCIUM CARBONATE 500 MG TAB PO SCH (08:12)
[2016-12-26] MEDS: SENNOSIDES/DOCUSATE SODIUM TAB PO SCH ×2 (08:12→20:23)
[2016-12-26] MEDS: DOCUSATE SODIUM 100 MG CAP PO SCH (08:12)
[2016-12-26] MEDS: ACETAMINOPHEN 325 MG TAB PO PRN (08:17)
--- NOTE | 2016-12-26 13:21 | HOSPPROG ---
Hospitalist Progress Note Assessment/Plan: 66 yo F with hx of prior right TKA and right labral tear with planned total hip presenting s/p mechanical fall with right subtrochanteric femur fx. This is my first encounter with this pt. Chart reviewed. D/W CM and RN. # right displaced subtrochanteric femur fx POD #3 nailing w ORIF stable, weak *right labral tear further f/u later after she heals from this surgery *right 3rd/4th dislocation s/p relocation in ER splints on fingers *Hyperglycemia likely stressed induced *anemia/blood loss was given a unit of 2 PRBC's hgb/hct decreased stable right femur area very swollen Celebrex place on hold *hypoxemia chest cxr shows ATX *Hypotension stable, follow *Plan: possible DC to SNF in am if labs and vitals remain stable Subjective: Feeling tired today. Pain ok. Weak and unable to get oob by self. Objective: Vital Signs Temp Pulse Resp BP Pulse Ox 37.2 C 97 18 91/53 L 92 12/26/16 07:12 12/26/16 07:12 12/26/16 07:12 12/26/16 07:12 12/26/16 07:12 Laboratory Results 12/26/16 05:14 12/26/16 05:14 12/25/16 12/26/16 12/27/16 05:59 05:59 05:59 Intake Total 1000 2350 Output Total 1200 600 Balance -200 1750 - Physical Exam Constitutional: appears nourished, not in pain, uncomfortable Eyes: PERRL, anicteric sclera, EOMI Ears, Nose, Mouth, Throat: moist mucous membranes, hearing normal, ears appear normal Cardiovascular: edema, No JVD, No tachycardia Respiratory: no respiratory distress, no rales or rhonchi, reduced air movement Gastrointestinal: No tenderness, No ascites, No guarding Skin: warm, no rashes or abrasions, no fluctuance Musculoskeletal: joint tenderness, pain with ROM, generalized weakness Neurologic: AAOx3 Psychiatric: interacting appropriately, not anxious, not encephalopathic ICD10 Worksheet Patient Problems: Problems Problem Status Onset Fracture of proximal end of right femur Acute Dislocation of right middle finger Acute Dislocation of right ring finger Acute
[2016-12-26 15:22] VITALS: RESP 16
[2016-12-27] MEDS: OXYCODONE/APAP 5/325 TAB PO PRN ×2 (01:38→15:20)
[2016-12-27 05:17] LABS: HEMATOCRIT 28.2 % (38.0-47.0); HEMOGLOBIN 9.3 g/dL (12.6-16.3)
[2016-12-27 07:36] VITALS: PULSE 92; TEMP 97.6
[2016-12-27 07:38] VITALS: BP 92/62
[2016-12-27] MEDS: CALCIUM CARBONATE 500 MG TAB PO SCH (09:03)
[2016-12-27] MEDS: DOCUSATE SODIUM 100 MG CAP PO SCH (09:03)
[2016-12-27] MEDS: ENOXAPARIN 40 MG/0.4 ML SYR SC SCH (09:04)
[2016-12-27] MEDS: SENNOSIDES/DOCUSATE SODIUM TAB PO SCH (09:04)
[2016-12-27] MEDS: oxyCODONE IR 5 MG TAB PO PRN (09:07)
--- NOTE | 2016-12-27 09:19 | PDIAF ---
- Diagnosis Diagnosis: hip fx Code Status: Full Code - Medication Management Discharge Medications: Medications to Continue on Transfer Calcium Carbonate [Oyster Shell Calcium 500 mg (*)] 500 mg PO DAILY 12/22/16 [ Last Taken 12/22/16] Docusate Sodium [Colace 100 MG (*)] 100 mg PO DAILY 12/22/16 [Last Taken ] Acetaminophen [Tylenol 325mg (*)] 650 mg PO Q4HRS PRN #0 tab 12/27/16 [Last Taken Unknown] Enoxaparin [Lovenox 40 MG (*)] 40 mg SC DAILY #10 syr 12/27/16 [Last Taken Unknown] Polyethylene Glycol 3350 [Miralax 17 gm (*)] 17 gm PO DAILY PRN #0 pkt 12/27/16 [Last Taken Unknown] Sennosides/Docusate Sodium [Senokot-S] 1 - 2 tab PO BID tab 12/27/16 [Last Taken Unknown] oxyCODONE IR [Oxycodone Ir (*)] 5 - 10 mg PO Q3HRS PRN #30 tab 12/27/16 [Last Taken Unknown] oxyCODONE/APAP 5/325 [Percocet 5/325 (*)] 1 - 2 tab PO Q4 PRN #20 tab 12/27/16 [ Last Taken Unknown] Discharge Medications: Refer to the Discharge Home Medication list for PRN reason. - Orders Services needed: Home Care, Physical Therapy, Occupational Therapy Home Care Face to Face: I certify that this patient was under my care and that I had the required [id number] encounter meeting the encounter requirements on the discharge day. My findings support the fact that the patient is homebound as defined in CMS Chapter 7 Medicare Benefits Manual 30.1.1, The condition of the patient is such that there exists a normal inability to leave home and consequently, leaving home would require a considerable and taxing effort. Diet Recommendation: no restrictions on diet - Follow Up Care Current Providers and Referrals: Patient,NotPresent [Unknown] - As per Instructions Drea Olivo MD [Medical Doctor] -
--- NOTE | 2016-12-27 10:05 | SOAPPROG ---
SOAP Progress Note Assessment/Plan: Assessment: shaylee 66 yo female, pod #3 s/p right femoral nailing w/ ORIF of right femur fracture, s/p received 2 unit PRBC's -care per primary team -pain control per primary team -proph: per primary team -RLE: partial weight bearing with walker. -dispo per primary team with stable labs/vital signs, most likely will go to SNF or rehab facility as has difficulty to ambulate and get OOB to chair -follow up with orthopedics 10-14 days s/p surgery w/ dr. chavez or staff at [facility] [place] -ortho will continue to follow till discharge Subjective: patient denies any issues overnight, reports pain continues to improve, denies cp/sob, denies n/v/d/c. reports she is voiding freely, passing gas, but no BM as of yet Objective: RLE: dressings c/d/i with small amount of serosanguineous blood visualized in the middle dressings edge, thight soft and compressible, no erythema, no hip/ knee rom assessed, full ankle/digital rom, nvid w/ brisk cap refill, pt/dp 2+ Vital Signs Temp Pulse Resp BP Pulse Ox 36.4 C 92 16 92/62 L 96 12/27/16 07:35 12/27/16 07:35 12/27/16 07:35 12/27/16 07:38 12/27/16 07:35 Laboratory Results 12/27/16 04:50 12/26/16 05:14 12/26/16 12/27/16 12/28/16 05:59 05:59 05:59 Intake Total 2350 990 Output Total 600 800 Balance 1750 190 ICD10 Worksheet Patient Problems: Problems Problem Status Onset Dislocation of right middle finger Acute Dislocation of right ring finger Acute Fracture of proximal end of right femur Acute
--- NOTE | 2016-12-27 12:39 | GDS ---
[f rep st] DISCHARGE SUMMARY DISCHARGE DIAGNOSES: 1. Right displaced subtrochanteric femur fracture. 2. Right labral tear. 3. Right third and fourth finger dislocation. 4. Hyperglycemia. 5. Anemia. 6. Hypoxemia. 7. Hypotension. CONSULTATIONS: Dr. Pate of Orthopedics. PHYSICAL EXAM: GENERAL: The patient is alert. VITAL SIGNS: Afebrile at 36.4 , pulse is 92, respiratory rate 16, blood pressure is 92/62. She is saturating less than 90% on room air. I have seen and evaluated the patient on the day of discharge. HOSPITAL COURSE: 1. The patient is a 66-year-old female who suffered a mechanical fall, presented to the emergency room. She was diagnosed with a right subtrochanteric femur fracture. During this hospitalization she was treated with surgical intervention. She is continuing to require physical therapy and occupational therapy. 2. Right labral tear, this will be evaluated in the future. 3. Anemia, this is multifactorial. The patient has received 2 units of packed red blood cells during this hospitalization. Her blood count has remained stable, and she will follow up in the outpatient setting with her primary care physician. 4. Hyperglycemia, this is likely secondary to stress, which should be followed by primary care. 5. Third and fourth finger dislocation. The patient's fingers are splinted and have been relocated. 6. Hypoxemia. Patient had a chest x-ray during this hospitalization noting atelectasis. We will continue further supportive oxygen as needed. She will need home oxygen at the time of discharge. 7. Hypotension, this is mild and stable, asymptomatic. DISPOSITION: The patient will be discharged home with home health care. It has been recommended that she go to [facility], however, the patient is refusing at this time. She does understand risks with going home independently with her . I have educated her at length with regard to the need to follow up in the emergency room if her condition should change. She states that she does understand this. Home healthcare has been provided for her at the time of disposition. DISCHARGE MEDICATIONS: Prescriptions have been provided for Lovenox, Percocet, oxycodone IR. I have not changed the patient's previously prescribed home medications, other than the noted discontinuation of Celebrex secondary to possible blood loss in the patient's right leg. FOLLOWUP: Will be with her primary care physician, as well as Dr. Hubert Pate. I spent greater than 35 minutes in the care, coordination, and management of this patient's disposition. /[id number]/MODL MTDD
[2016-12-27 13:43] VITALS: O2SAT 82
== END 2016-12-27 16:21 | disposition home health service (06) | DRG 482 ==
LOC: EDUNIT# → F3N 21:40
PROVIDERS: ADMIT Internal Medicine; ATTEND Internal Medicine
PROC: 0PSTXZZ Reposition Right Finger Phalanx, External Approach (ICD-10-PCS; 2016-12-22)
PROC: 0QS606Z Reposition Right Upper Femur with Intramedullary Internal Fixation Device, Open Approach (ICD-10-PCS; principal; 2016-12-23 11:15)
PROC: 30233N1 Transfusion of Nonautologous Red Blood Cells into Peripheral Vein, Percutaneous Approach (ICD-10-PCS; 2016-12-24)
DX: S72.21XA Displaced subtrochanteric fracture of right femur, initial encounter for closed fracture (principal); R73.9 Hyperglycemia, unspecified; D64.9 Anemia, unspecified; R09.02 Hypoxemia; I95.9 Hypotension, unspecified; W01.0XXA Fall on same level from slipping, tripping and stumbling without subsequent striking against object, initial encounter; Y93.K1 Activity, walking an animal; S63.294A Dislocation of distal interphalangeal joint of right ring finger, initial encounter; S63.292A Dislocation of distal interphalangeal joint of right middle finger, initial encounter; Z96.651 Presence of right artificial knee joint
CPT/HCPCS: 96374; 97116-GP; 97162-GP; 97165-GO; 97530-GO; 97530-GP; 97535-GO; C1713; C1769; G8987-GO-CL; G8988-GO-CJ; J0690; J1170; J1650; J2250; J2405; J2704; J2710; J2795; J3010; P9021; P9041